=== PATIENT | male | born 1985 | race Caucasian/White ===

== ENCOUNTER 2023-07-29 20:57 | Inpatient (IN) | payer OTHER ==
[2023-07-29 21:47] VITALS: BMI 23.7
[2023-07-29] MEDS ORDERED: DOCUSATE SODIUM 100 MG CAPSULE (FP) PO PRN (23:41)
[2023-07-29] MEDS ORDERED: BENZONATATE 200 MG CAPSULE PO PRN (23:41)
[2023-07-29] MEDS ORDERED: BENZOCAINE/MENTHOL (CHLORASEPTIC ) LOZENGE MM PRN (23:41)
[2023-07-29] MEDS ORDERED: IBUPROFEN 400 MG TABLET (FP) PO PRN (23:41)
[2023-07-29] MEDS ORDERED: NICOTINE POLACRILEX 2 MG GUM BUC PRN (23:41)
[2023-07-29] MEDS ORDERED: ACETAMINOPHEN 325 MG TABLET (FP) PO PRN (23:41)
[2023-07-29] MEDS ORDERED: POLYETHYLENE GLYCOL (HEALTHYLAX) 3350 17 GM PACKET PO PRN (23:41)
[2023-07-29] MEDS ORDERED: guaiFENesin 600 MG TABLET.ER (FP) PO PRN (23:41)
[2023-07-29] MEDS ORDERED: LOPERAMIDE HCL 2 MG CAPSULE PO PRN (23:41)
[2023-07-29] MEDS ORDERED: P-EPHED 60MG/TRIPROLIDI 2.5MG TABLET PO PRN (23:41)
[2023-07-29] MEDS ORDERED: MAG HYDROX/AL HYDROX/SIMETH 30 ML UNIT-DOSE CUP PO PRN (23:41)
[2023-07-29] MEDS ORDERED: COLLOIDAL OATMEAL 1 BAR EACH TP PRN (23:41)
[2023-07-29] MEDS ORDERED: MAGNESIUM HYDROX 2400MG/30ML ORAL SUSPENSION 30 ML CUP PO PRN (23:41)
[2023-07-30 09:42] LABS: POTASSIUM 4.6 mmol/L (3.5-5.1)
[2023-07-30 09:44] LABS: HEMATOCRIT 48.5 % (35.4-49); HEMOGLOBIN 16.3 GM/dL (11.7-16.9); MCH 30.1 pg (25.7-33.7); MCHC 33.6 g/dl (32.0-35.9); MEAN CELL VOLUME 89.8 fl (80-96); PLATELET COUNT 249 10^3/uL (134-434); RDW 13.3 % (11.9-15.9); WHITE BLOOD COUNT 7.2 K/mm3 (4.0-10.0)
[2023-07-30] MEDS: PRENATAL VITAMINS W/ FOLIC ACID TABLET (FP) PO SCH (09:44)
[2023-07-30] MEDS: levETIRAcetam 500 MG TABLET (FP) PO SCH ×2 (09:46→21:42)
[2023-07-30 09:49] LABS: URINE APPEARANCE CLEAR; URINE BILIRUBIN NEGATIVE (NEGATIVE); URINE COLOR DK YELLOW; URINE GLUCOSE (UA) NEGATIVE (NEGATIVE); URINE KETONE TRACE (NEGATIVE); URINE LEUK ESTERASE NEGATIVE (NEGATIVE); URINE NITRITE NEGATIVE (NEGATIVE); URINE PROTEIN NEGATIVE (NEGATIVE)
[2023-07-30 10:01] LABS: CALCIUM 9.2 mg/dL (8.5-10.1)
[2023-07-30 10:02] LABS: ALBUMIN 3.6 g/dl (3.4-5.0); BLOOD UREA NITROGEN 9.6 mg/dL (7-18)
[2023-07-30 10:04] LABS: TOT PROT 6.5 g/dl (6.4-8.2)
[2023-07-30 10:05] LABS: CREATININE 1.1 mg/dL (0.55-1.3)
[2023-07-30 10:07] LABS: BILIRUBIN,TOTAL 1.1 mg/dL (0.2-1)
[2023-07-30] MEDS: BACITRACIN ZINC 15 GM TUBE TOPICAL OINTMENT TP SCH ×2 (11:25→21:42)
[2023-07-30] MEDS: LORATADINE 10 MG TABLET PO SCH (16:02)
[2023-07-30] MEDS: PANTOPRAZOLE 20 MG TABLET PO SCH (16:02)
[2023-07-30] MEDS: MELATONIN 5 MG TABLETS PO SCH (21:42)
[2023-07-30] MEDS: THIAMINE HCL 100 MG TABLET (FP) PO SCH (21:42)
[2023-07-31] MEDS: BACITRACIN ZINC 15 GM TUBE TOPICAL OINTMENT TP SCH ×2 (09:41→21:11)
[2023-07-31] MEDS: PRENATAL VITAMINS W/ FOLIC ACID TABLET (FP) PO SCH (09:42)
[2023-07-31] MEDS: PANTOPRAZOLE 20 MG TABLET PO SCH (09:42)
[2023-07-31] MEDS: LORATADINE 10 MG TABLET PO SCH (09:42)
[2023-07-31] MEDS: levETIRAcetam 500 MG TABLET (FP) PO SCH ×2 (09:43→21:11)
[2023-07-31] MEDS: MELATONIN 5 MG TABLETS PO SCH (21:11)
[2023-07-31] MEDS: THIAMINE HCL 100 MG TABLET (FP) PO SCH (21:12)
[2023-08-01] MEDS: PANTOPRAZOLE 20 MG TABLET PO SCH (09:47)
[2023-08-01] MEDS: LORATADINE 10 MG TABLET PO SCH (09:47)
[2023-08-01] MEDS: levETIRAcetam 500 MG TABLET (FP) PO SCH ×2 (09:47→21:35)
[2023-08-01] MEDS: PRENATAL VITAMINS W/ FOLIC ACID TABLET (FP) PO SCH (09:47)
[2023-08-01] MEDS: BACITRACIN ZINC 15 GM TUBE TOPICAL OINTMENT TP SCH ×2 (09:47→21:35)
[2023-08-01] MEDS: THIAMINE HCL 100 MG TABLET (FP) PO SCH (21:34)
[2023-08-01] MEDS: MELATONIN 5 MG TABLETS PO SCH (21:35)
[2023-08-02] MEDS: PANTOPRAZOLE 20 MG TABLET PO SCH (09:34)
[2023-08-02] MEDS: BACITRACIN ZINC 15 GM TUBE TOPICAL OINTMENT TP SCH ×2 (09:35→21:29)
[2023-08-02] MEDS: PRENATAL VITAMINS W/ FOLIC ACID TABLET (FP) PO SCH (09:35)
[2023-08-02] MEDS: LORATADINE 10 MG TABLET PO SCH (09:35)
[2023-08-02] MEDS: levETIRAcetam 500 MG TABLET (FP) PO SCH (09:37)
[2023-08-02 14:56] LABS: INR 0.97 (0.83-1.09); PROTHROMBIN TIME (PATIENT) 11.3 SEC (9.7-13.0)
[2023-08-02] MEDS: THIAMINE HCL 100 MG TABLET (FP) PO SCH (21:28)
[2023-08-02] MEDS: MELATONIN 5 MG TABLETS PO SCH (21:28)
[2023-08-03] MEDS: LORATADINE 10 MG TABLET PO SCH (09:38)
[2023-08-03] MEDS: BACITRACIN ZINC 15 GM TUBE TOPICAL OINTMENT TP SCH ×2 (09:38→21:13)
[2023-08-03] MEDS: PANTOPRAZOLE 20 MG TABLET PO SCH (09:38)
[2023-08-03] MEDS: PRENATAL VITAMINS W/ FOLIC ACID TABLET (FP) PO SCH (09:38)
[2023-08-03] MEDS: FLUTICASONE PROP 0.05% 16 GM NASAL SPRAY NS PRN (09:39)
[2023-08-03] MEDS: MELATONIN 5 MG TABLETS PO SCH (21:12)
[2023-08-03] MEDS: THIAMINE HCL 100 MG TABLET (FP) PO SCH (21:12)
[2023-08-04] MEDS: LORATADINE 10 MG TABLET PO SCH (09:34)
[2023-08-04] MEDS: PRENATAL VITAMINS W/ FOLIC ACID TABLET (FP) PO SCH (09:34)
[2023-08-04] MEDS: FLUTICASONE PROP 0.05% 16 GM NASAL SPRAY NS PRN (09:35)
[2023-08-04] MEDS: PANTOPRAZOLE 20 MG TABLET PO SCH (09:35)
[2023-08-04] MEDS: BACITRACIN ZINC 15 GM TUBE TOPICAL OINTMENT TP SCH ×2 (09:35→21:04)
[2023-08-04] MEDS: hydrOXYzine PAMOATE 25 MG CAPSULE (FP) PO PRN (09:36)
[2023-08-04] MEDS: MELATONIN 5 MG TABLETS PO SCH (21:04)
[2023-08-04] MEDS: THIAMINE HCL 100 MG TABLET (FP) PO SCH (21:05)
[2023-08-05] MEDS: PRENATAL VITAMINS W/ FOLIC ACID TABLET (FP) PO SCH (09:36)
[2023-08-05] MEDS: LORATADINE 10 MG TABLET PO SCH (09:37)
[2023-08-05] MEDS: AMOXICILLIN 500 MG CAPSULE (FP) PO SCH ×2 (09:37→21:08)
[2023-08-05] MEDS: hydrOXYzine PAMOATE 25 MG CAPSULE (FP) PO PRN (09:37)
[2023-08-05] MEDS: PANTOPRAZOLE 20 MG TABLET PO SCH (09:37)
[2023-08-05] MEDS: BACITRACIN ZINC 15 GM TUBE TOPICAL OINTMENT TP SCH ×2 (09:38→21:09)
[2023-08-05] MEDS: FLUTICASONE PROP 0.05% 16 GM NASAL SPRAY NS PRN (09:39)
[2023-08-05] MEDS: THIAMINE HCL 100 MG TABLET (FP) PO SCH (21:08)
[2023-08-05] MEDS: MELATONIN 5 MG TABLETS PO SCH (21:08)
[2023-08-06] MEDS: PRENATAL VITAMINS W/ FOLIC ACID TABLET (FP) PO SCH (09:35)
[2023-08-06] MEDS: LORATADINE 10 MG TABLET PO SCH (09:35)
[2023-08-06] MEDS: hydrOXYzine PAMOATE 25 MG CAPSULE (FP) PO PRN (09:36)
[2023-08-06] MEDS: AMOXICILLIN 500 MG CAPSULE (FP) PO SCH ×2 (09:36→21:05)
[2023-08-06] MEDS: PANTOPRAZOLE 20 MG TABLET PO SCH (09:36)
[2023-08-06] MEDS: FLUTICASONE PROP 0.05% 16 GM NASAL SPRAY NS PRN (09:37)
[2023-08-06] MEDS: BACITRACIN ZINC 15 GM TUBE TOPICAL OINTMENT TP SCH ×2 (09:44→21:05)
[2023-08-06] MEDS: MELATONIN 5 MG TABLETS PO SCH (21:05)
[2023-08-06] MEDS: THIAMINE HCL 100 MG TABLET (FP) PO SCH (21:05)
[2023-08-07] MEDS: PRENATAL VITAMINS W/ FOLIC ACID TABLET (FP) PO SCH (09:31)
[2023-08-07] MEDS: AMOXICILLIN 500 MG CAPSULE (FP) PO SCH ×2 (09:31→21:05)
[2023-08-07] MEDS: LORATADINE 10 MG TABLET PO SCH (09:31)
[2023-08-07] MEDS: PANTOPRAZOLE 20 MG TABLET PO SCH (09:31)
[2023-08-07] MEDS: BACITRACIN ZINC 15 GM TUBE TOPICAL OINTMENT TP SCH ×2 (09:31→21:30)
[2023-08-07] MEDS: hydrOXYzine PAMOATE 25 MG CAPSULE (FP) PO PRN ×2 (09:32→21:05)
[2023-08-07] MEDS: FLUTICASONE PROP 0.05% 16 GM NASAL SPRAY NS PRN (09:32)
[2023-08-07] MEDS: THIAMINE HCL 100 MG TABLET (FP) PO SCH (21:05)
[2023-08-07] MEDS: MELATONIN 5 MG TABLETS PO SCH (21:05)
[2023-08-08] MEDS: PRENATAL VITAMINS W/ FOLIC ACID TABLET (FP) PO SCH (09:22)
[2023-08-08] MEDS: AMOXICILLIN 500 MG CAPSULE (FP) PO SCH ×2 (09:22→21:10)
[2023-08-08] MEDS: LORATADINE 10 MG TABLET PO SCH (09:22)
[2023-08-08] MEDS: BACITRACIN ZINC 15 GM TUBE TOPICAL OINTMENT TP SCH ×2 (09:22→21:10)
[2023-08-08] MEDS: FLUTICASONE PROP 0.05% 16 GM NASAL SPRAY NS PRN (09:23)
[2023-08-08] MEDS: PANTOPRAZOLE 20 MG TABLET PO SCH (09:23)
[2023-08-08] MEDS: hydrOXYzine PAMOATE 25 MG CAPSULE (FP) PO PRN (09:24)
[2023-08-08] MEDS: MELATONIN 5 MG TABLETS PO SCH (21:10)
[2023-08-08] MEDS: THIAMINE HCL 100 MG TABLET (FP) PO SCH (21:10)
[2023-08-08] MEDS: IBUPROFEN 600 MG TABLET (FP) PO PRN (21:10)
[2023-08-09] MEDS: AMOXICILLIN 500 MG CAPSULE (FP) PO SCH ×2 (09:38→21:06)
[2023-08-09] MEDS: BACITRACIN ZINC 15 GM TUBE TOPICAL OINTMENT TP SCH ×2 (09:38→21:34)
[2023-08-09] MEDS: LORATADINE 10 MG TABLET PO SCH (09:38)
[2023-08-09] MEDS: PANTOPRAZOLE 20 MG TABLET PO SCH (09:38)
[2023-08-09] MEDS: PRENATAL VITAMINS W/ FOLIC ACID TABLET (FP) PO SCH (09:38)
[2023-08-09] MEDS: hydrOXYzine PAMOATE 25 MG CAPSULE (FP) PO PRN ×2 (09:39→21:06)
[2023-08-09] MEDS: IBUPROFEN 600 MG TABLET (FP) PO PRN (09:40)
[2023-08-09] MEDS: FLUTICASONE PROP 0.05% 16 GM NASAL SPRAY NS PRN (09:41)
[2023-08-09] MEDS: MELATONIN 5 MG TABLETS PO SCH (21:06)
[2023-08-09] MEDS: THIAMINE HCL 100 MG TABLET (FP) PO SCH (21:06)
[2023-08-10] MEDS: BACITRACIN ZINC 15 GM TUBE TOPICAL OINTMENT TP SCH ×2 (09:41→21:10)
[2023-08-10] MEDS: PRENATAL VITAMINS W/ FOLIC ACID TABLET (FP) PO SCH (09:41)
[2023-08-10] MEDS: AMOXICILLIN 500 MG CAPSULE (FP) PO SCH ×2 (09:41→21:10)
[2023-08-10] MEDS: LORATADINE 10 MG TABLET PO SCH (09:41)
[2023-08-10] MEDS: FLUTICASONE PROP 0.05% 16 GM NASAL SPRAY NS PRN (09:42)
[2023-08-10] MEDS: PANTOPRAZOLE 20 MG TABLET PO SCH (09:42)
[2023-08-10] MEDS: hydrOXYzine PAMOATE 25 MG CAPSULE (FP) PO PRN ×2 (09:44→21:10)
[2023-08-10] MEDS: THIAMINE HCL 100 MG TABLET (FP) PO SCH (21:10)
[2023-08-10] MEDS: MELATONIN 5 MG TABLETS PO SCH (21:10)
[2023-08-11] MEDS: AMOXICILLIN 500 MG CAPSULE (FP) PO SCH ×2 (09:49→21:15)
[2023-08-11] MEDS: hydrOXYzine PAMOATE 25 MG CAPSULE (FP) PO PRN ×2 (09:49→21:16)
[2023-08-11] MEDS: FLUTICASONE PROP 0.05% 16 GM NASAL SPRAY NS PRN (09:49)
[2023-08-11] MEDS: LORATADINE 10 MG TABLET PO SCH (09:50)
[2023-08-11] MEDS: PANTOPRAZOLE 20 MG TABLET PO SCH (09:50)
[2023-08-11] MEDS: BACITRACIN ZINC 15 GM TUBE TOPICAL OINTMENT TP SCH ×2 (09:50→21:46)
[2023-08-11] MEDS: PRENATAL VITAMINS W/ FOLIC ACID TABLET (FP) PO SCH (09:50)
[2023-08-11] MEDS: BACLOFEN 10 MG TABLET (FP) PO PRN ×2 (14:56→21:15)
[2023-08-11] MEDS: MELATONIN 5 MG TABLETS PO SCH (21:13)
[2023-08-11] MEDS: THIAMINE HCL 100 MG TABLET (FP) PO SCH (21:13)
[2023-08-12] MEDS: LORATADINE 10 MG TABLET PO SCH (09:41)
[2023-08-12] MEDS: hydrOXYzine PAMOATE 25 MG CAPSULE (FP) PO PRN ×2 (09:42→21:16)
[2023-08-12] MEDS: PRENATAL VITAMINS W/ FOLIC ACID TABLET (FP) PO SCH (09:42)
[2023-08-12] MEDS: FLUTICASONE PROP 0.05% 16 GM NASAL SPRAY NS PRN (09:42)
[2023-08-12] MEDS: PANTOPRAZOLE 20 MG TABLET PO SCH (09:42)
[2023-08-12] MEDS: BACITRACIN ZINC 15 GM TUBE TOPICAL OINTMENT TP SCH ×2 (09:43→21:16)
[2023-08-12] MEDS: BACLOFEN 10 MG TABLET (FP) PO PRN ×2 (09:44→21:16)
[2023-08-12] MEDS: THIAMINE HCL 100 MG TABLET (FP) PO SCH (21:16)
[2023-08-12] MEDS: MELATONIN 5 MG TABLETS PO SCH (21:16)
[2023-08-13] MEDS: PRENATAL VITAMINS W/ FOLIC ACID TABLET (FP) PO SCH (09:48)
[2023-08-13] MEDS: BACITRACIN ZINC 15 GM TUBE TOPICAL OINTMENT TP SCH ×2 (09:49→21:16)
[2023-08-13] MEDS: LORATADINE 10 MG TABLET PO SCH (09:49)
[2023-08-13] MEDS: PANTOPRAZOLE 20 MG TABLET PO SCH (09:49)
[2023-08-13] MEDS: BACLOFEN 10 MG TABLET (FP) PO PRN ×2 (09:50→21:16)
[2023-08-13] MEDS: hydrOXYzine PAMOATE 25 MG CAPSULE (FP) PO PRN ×2 (09:50→21:16)
[2023-08-13] MEDS: MELATONIN 5 MG TABLETS PO SCH (21:16)
[2023-08-13] MEDS: THIAMINE HCL 100 MG TABLET (FP) PO SCH (21:16)
[2023-08-14] MEDS: PANTOPRAZOLE 20 MG TABLET PO SCH (09:33)
[2023-08-14] MEDS: PRENATAL VITAMINS W/ FOLIC ACID TABLET (FP) PO SCH (09:33)
[2023-08-14] MEDS: LORATADINE 10 MG TABLET PO SCH (09:33)
[2023-08-14] MEDS: FLUTICASONE PROP 0.05% 16 GM NASAL SPRAY NS PRN (09:34)
[2023-08-14] MEDS: hydrOXYzine PAMOATE 25 MG CAPSULE (FP) PO PRN ×2 (09:34→21:10)
[2023-08-14] MEDS: BACITRACIN ZINC 15 GM TUBE TOPICAL OINTMENT TP SCH ×2 (09:35→21:10)
[2023-08-14] MEDS: MELATONIN 5 MG TABLETS PO SCH (21:10)
[2023-08-14] MEDS: THIAMINE HCL 100 MG TABLET (FP) PO SCH (21:10)
[2023-08-15] MEDS: PRENATAL VITAMINS W/ FOLIC ACID TABLET (FP) PO SCH (09:48)
[2023-08-15] MEDS: FLUTICASONE PROP 0.05% 16 GM NASAL SPRAY NS PRN (09:48)
[2023-08-15] MEDS: BACITRACIN ZINC 15 GM TUBE TOPICAL OINTMENT TP SCH ×2 (09:48→21:20)
[2023-08-15] MEDS: hydrOXYzine PAMOATE 25 MG CAPSULE (FP) PO PRN ×2 (09:49→21:07)
[2023-08-15] MEDS: PANTOPRAZOLE 20 MG TABLET PO SCH (09:49)
[2023-08-15] MEDS: LORATADINE 10 MG TABLET PO SCH (09:49)
[2023-08-15] MEDS: MELATONIN 5 MG TABLETS PO SCH (21:07)
[2023-08-15] MEDS: THIAMINE HCL 100 MG TABLET (FP) PO SCH (21:07)
[2023-08-15] MEDS: BACLOFEN 10 MG TABLET (FP) PO PRN (21:08)
[2023-08-16] MEDS: PANTOPRAZOLE 20 MG TABLET PO SCH (09:34)
[2023-08-16] MEDS: PRENATAL VITAMINS W/ FOLIC ACID TABLET (FP) PO SCH (09:34)
[2023-08-16] MEDS: BACITRACIN ZINC 15 GM TUBE TOPICAL OINTMENT TP SCH ×2 (09:34→21:14)
[2023-08-16] MEDS: LORATADINE 10 MG TABLET PO SCH (09:34)
[2023-08-16] MEDS: hydrOXYzine PAMOATE 25 MG CAPSULE (FP) PO PRN ×2 (09:35→21:14)
[2023-08-16] MEDS: FLUTICASONE PROP 0.05% 16 GM NASAL SPRAY NS PRN (10:25)
[2023-08-16] MEDS: MELATONIN 5 MG TABLETS PO SCH (21:14)
[2023-08-16] MEDS: THIAMINE HCL 100 MG TABLET (FP) PO SCH (21:14)
[2023-08-16] MEDS: BACLOFEN 10 MG TABLET (FP) PO PRN (21:14)
[2023-08-17] MEDS: LORATADINE 10 MG TABLET PO SCH (09:49)
[2023-08-17] MEDS: PANTOPRAZOLE 20 MG TABLET PO SCH (09:49)
[2023-08-17] MEDS: FLUTICASONE PROP 0.05% 16 GM NASAL SPRAY NS PRN (09:49)
[2023-08-17] MEDS: PRENATAL VITAMINS W/ FOLIC ACID TABLET (FP) PO SCH (09:49)
[2023-08-17] MEDS: hydrOXYzine PAMOATE 25 MG CAPSULE (FP) PO PRN ×2 (09:51→21:17)
[2023-08-17] MEDS: BACLOFEN 10 MG TABLET (FP) PO PRN ×2 (09:51→21:18)
[2023-08-17] MEDS: BACITRACIN ZINC 15 GM TUBE TOPICAL OINTMENT TP SCH ×2 (09:55→21:16)
[2023-08-17] MEDS ORDERED: NALTREXONE HCL 50 MG TABLET PO ONE (18:00)
[2023-08-17] MEDS: THIAMINE HCL 100 MG TABLET (FP) PO SCH (21:16)
[2023-08-17] MEDS: MELATONIN 5 MG TABLETS PO SCH (21:16)
[2023-08-18] MEDS: PANTOPRAZOLE 20 MG TABLET PO SCH (09:50)
[2023-08-18] MEDS: LORATADINE 10 MG TABLET PO SCH (09:50)
[2023-08-18] MEDS: hydrOXYzine PAMOATE 25 MG CAPSULE (FP) PO PRN ×2 (09:50→21:18)
[2023-08-18] MEDS: BACITRACIN ZINC 15 GM TUBE TOPICAL OINTMENT TP SCH ×2 (09:50→21:19)
[2023-08-18] MEDS: PRENATAL VITAMINS W/ FOLIC ACID TABLET (FP) PO SCH (09:50)
[2023-08-18] MEDS: FLUTICASONE PROP 0.05% 16 GM NASAL SPRAY NS PRN (09:50)
[2023-08-18] MEDS: NALTREXONE HCL 50 MG TABLET PO SCH (09:50)
[2023-08-18] MEDS: BACLOFEN 10 MG TABLET (FP) PO PRN ×2 (09:53→21:20)
[2023-08-18] MEDS: MELATONIN 5 MG TABLETS PO SCH (21:18)
[2023-08-18] MEDS: THIAMINE HCL 100 MG TABLET (FP) PO SCH (21:18)
[2023-08-19] MEDS: BACITRACIN ZINC 15 GM TUBE TOPICAL OINTMENT TP SCH ×2 (10:11→22:00)
[2023-08-19] MEDS: PANTOPRAZOLE 20 MG TABLET PO SCH (10:12)
[2023-08-19] MEDS: LORATADINE 10 MG TABLET PO SCH (10:12)
[2023-08-19] MEDS: PRENATAL VITAMINS W/ FOLIC ACID TABLET (FP) PO SCH (10:12)
[2023-08-19] MEDS: FLUTICASONE PROP 0.05% 16 GM NASAL SPRAY NS PRN (10:12)
[2023-08-19] MEDS: BACLOFEN 10 MG TABLET (FP) PO PRN ×2 (10:13→21:57)
[2023-08-19] MEDS: hydrOXYzine PAMOATE 25 MG CAPSULE (FP) PO PRN ×2 (10:13→21:57)
[2023-08-19] MEDS: NALTREXONE HCL 50 MG TABLET PO SCH (10:13)
[2023-08-19] MEDS: MELATONIN 5 MG TABLETS PO SCH (21:57)
[2023-08-19] MEDS: THIAMINE HCL 100 MG TABLET (FP) PO SCH (21:57)
[2023-08-20] MEDS: FLUTICASONE PROP 0.05% 16 GM NASAL SPRAY NS PRN (09:13)
[2023-08-20] MEDS: NALTREXONE HCL 50 MG TABLET PO SCH (09:13)
[2023-08-20] MEDS: PANTOPRAZOLE 20 MG TABLET PO SCH (09:13)
[2023-08-20] MEDS: LORATADINE 10 MG TABLET PO SCH (09:13)
[2023-08-20] MEDS: PRENATAL VITAMINS W/ FOLIC ACID TABLET (FP) PO SCH (09:13)
[2023-08-20] MEDS: BACITRACIN ZINC 15 GM TUBE TOPICAL OINTMENT TP SCH (09:14)
[2023-08-20] MEDS: hydrOXYzine PAMOATE 25 MG CAPSULE (FP) PO PRN (09:15)
[2023-08-20 11:03] VITALS: BP 125/74; PULSE 91; RESP 20; TEMP 97.1
[2023-08-21] MEDS ORDERED: NALTREXONE MICROSPHERES (VIVITROL) 380 MG DISP.SYRIN IM ONE (10:00)
== END 2023-08-20 09:17 | disposition home or self-care (01) | DRG 772 ==
LOC: YASAS 20:57 → Y5N 07-30 01:50
PROVIDERS: ADMIT Allergy & Immunology; ATTEND Psychiatry & Neurology Pain Medicine
PROC: HZ42ZZZ Group Counseling for Substance Abuse Treatment, Cognitive-Behavioral (ICD-10-PCS; principal; 2023-07-30)
DX: F10.20 Alcohol dependence, uncomplicated (principal); F14.20 Cocaine dependence, uncomplicated; F12.20 Cannabis dependence, uncomplicated; F17.210 Nicotine dependence, cigarettes, uncomplicated; K21.9 Gastro-esophageal reflux disease without esophagitis; M25.511 Pain in right shoulder; S51.812D Laceration without foreign body of left forearm, subsequent encounter; X78.0XXD Intentional self-harm by sharp glass, subsequent encounter; L02.414 Cutaneous abscess of left upper limb; R09.81 Nasal congestion; Z28.310 Unvaccinated for COVID-19; Z28.9 Immunization not carried out for unspecified reason
CPT/HCPCS: 36415; 80053; 81003; 82140; 85027; 85610; 86780; 86803; 87635; 93005; 93010; J0475